=== PATIENT | female | born 1940 | race African-American/Black ===

== ENCOUNTER 2017-03-21 19:25 | Inpatient (IN) | payer MEDICARE, MEDICAID ==
[~2017-03-21] VITALS: Ht 165.1 cm; Wt 113.4 kg
[~2017-03-21 19:25] MED LIST: DIAZ5TAB PO; DIPH25CA83 PO; DOCU-138 PO; ESOM40CA PO; FERR325T23; [UNRECOGNIZED DRUG - OTHER]
[2017-03-21 23:40] LABS: BASOPHILS % 1.5 % (0.0-2.0); EOSINOPHILS % 8.1 % (0.0-5.0); HEMATOCRIT. 35.9 % (36.0-48.0); LYMPHOCYTES % 34.5 % (20.0-50.0); MEAN CORPUSCULAR VOLUME 90.2 fL (81.0-99.0); MEAN PLATELET VOLUME 7.2 fl (7.4-10.4); MONOCYTES % 6.7 % (2.0-8.0); NEUTROPHILS % 49.2 % (40.0-76.0); PLATELET 240 x1000/uL (130-400); RED BLOOD CELL COUNT 3.98 mill/uL (4.2-5.4); RED CELL DISTRIBUTION WIDTH 14.9 % (11.6-14.6)
[2017-03-22 00:04] LABS: CARBON DIOXIDE 26 mEq/L (21-32); CHLORIDE 109 mEq/L (98-107); TROPONIN I < 0.02 ng/mL (0.00-0.04)
[2017-03-22] MEDS ORDERED: KETOROLAC 60MG/2ML VIAL IM SCH (00:46)
[2017-03-22 05:20] VITALS: BP 153/90
[2017-03-22] MEDS ORDERED: POTASSIUM CHLORIDE 20MEQ TABLET SR PO NR (06:30)
[2017-03-22] MEDS ORDERED: TRAMADOL 50MG TABLET PO PRN (06:30)
[2017-03-22 08:00] VITALS: BP 155/88
[2017-03-22] MEDS: OMEPRAZOLE 20MG CAPSULE EXTENDED RELEASE PO SCH (08:24)
[2017-03-22] MEDS: DIPHENHYDRAMINE 25MG CAPSULE PO SCH (08:26)
[2017-03-22] MEDS: DOCUSATE SODIUM 100MG CAPSULE PO SCH ×2 (08:30→17:13)
[2017-03-22] MEDS ORDERED: MEDICATION NOT ON FORMULARY EA (Esomeprazole Mag Trihydrate (Nexium) 1 CAP) PO SCH (09:00)
[2017-03-22] MEDS ORDERED: DIAZEPAM 5 MG TABLET PO SCH (09:00)
[2017-03-22] MEDS ORDERED: LORA0.5T2 PO (09:53)
[2017-03-22] MEDS ORDERED: MAGNESIUM/ALUMINUM HYDROXIDE/SIMETHICONE 30ML UDC PO PRN (11:00)
[2017-03-22] MEDS ORDERED: CLONIDINE 0.1MG TABLET PO PRN (11:00)
[2017-03-22] MEDS ORDERED: ACETAMINOPHEN 325MG TABLET PO PRN (11:00)
[2017-03-22] MEDS ORDERED: DOCUSATE SODIUM 100MG CAPSULE PO PRN (11:00)
[2017-03-22] MEDS ORDERED: ONDANSETRON HCL 4MG/2ML VIAL IV PRN (11:00)
[2017-03-22] MEDS ORDERED: IPRATROPIUM/ALBUTEROL 0.5-3(2.5)MG/3ML NEB INH PRN (11:00)
[2017-03-22 12:00] VITALS: BP 145/75
[2017-03-22] MEDS ORDERED: LORAZEPAM 0.5MG TABLET PO PRN (12:00)
[2017-03-22 13:54] LABS: *AMPHETAMINES SCREEN URINE NEGATIVE (NEGATIVE); *BARBITURATES SCREEN URINE NEGATIVE (NEGATIVE); *BENZODIAZEPINES SCREEN URINE NEGATIVE (NEGATIVE); *COCAINE SCREEN URINE NEGATIVE (NEGATIVE); CANNABINOID URINE SCREEN NEGATIVE (NEGATIVE); METHADONE URINE SCREEN NEGATIVE (NEGATIVE); OPIATES URINE SCREEN NEGATIVE (NEGATIVE); PHENCYCLIDINE URINE SCREEN NEGATIVE (NEGATIVE)
[2017-03-22] MEDS: HYDROCODONE/ACETAMINOPHEN 5/325MG TABLET PO PRN ×2 (13:54→22:53)
[2017-03-22 16:00] VITALS: BP 157/74
[2017-03-22 20:00] VITALS: BP 136/82
[2017-03-22] MEDS: FUROSEMIDE 20MG TABLET PO SCH (21:48)
[2017-03-22] MEDS: ONDANSETRON HCL 4MG/2ML VIAL IV PRN (23:07)
[2017-03-23] VITALS: BP 111/55
[2017-03-23 04:00] VITALS: BP 135/80
[2017-03-23] MEDS: HYDROCODONE/ACETAMINOPHEN 5/325MG TABLET PO PRN ×3 (05:25→22:50)
[2017-03-23] MEDS: OMEPRAZOLE 20MG CAPSULE EXTENDED RELEASE PO SCH (05:25)
[2017-03-23 06:32] LABS: BASOPHILS % 0.6 % (0.0-2.0); EOSINOPHILS % 10.5 % (0.0-5.0); HEMATOCRIT. 36.5 % (36.0-48.0); HEMOGLOBIN. 12.2 g/dL (12.0-16.0); LYMPHOCYTES % 28.6 % (20.0-50.0); MEAN CORPUSCULAR HEMOGLOBIN 30.4 pg (28.0-32.0); MEAN CORPUSCULAR VOLUME 90.7 fL (81.0-99.0); MEAN PLATELET VOLUME 7.6 fl (7.4-10.4); MONOCYTES % 8.3 % (2.0-8.0); PLATELET 241 x1000/uL (130-400); RED BLOOD CELL COUNT 4.02 mill/uL (4.2-5.4); RED CELL DISTRIBUTION WIDTH 15.2 % (11.6-14.6)
[2017-03-23 07:54] LABS: CARBON DIOXIDE 26 mEq/L (21-32); CHLORIDE 107 mEq/L (98-107)
[2017-03-23 08:00] VITALS: BP 121/68
[2017-03-23] MEDS: FUROSEMIDE 20MG TABLET PO SCH ×2 (09:50→21:11)
[2017-03-23] MEDS: DIPHENHYDRAMINE 25MG CAPSULE PO SCH (09:50)
[2017-03-23] MEDS: DOCUSATE SODIUM 100MG CAPSULE PO SCH ×2 (09:50→16:06)
[2017-03-23] MEDS: ONDANSETRON HCL 4MG/2ML VIAL IV PRN (10:58)
[2017-03-23 12:00] VITALS: BP 131/72
[2017-03-23] MEDS ORDERED: IOHEXOL-300 100 ML BOTTLE ONE (15:11)
[2017-03-23 16:00] VITALS: BP 135/73
[2017-03-23 20:00] VITALS: BP 129/84
[2017-03-24] VITALS: BP 125/69
[2017-03-24 08:00] VITALS: BP 135/88
[2017-03-24] MEDS ORDERED: LACTULOSE 20G/30ML UDC PO NR (10:30)
[2017-03-24 12:00] VITALS: BP 116/71
[2017-03-24 13:00] LABS: BASOPHILS % 0.5 % (0.0-2.0); EOSINOPHILS % 8.6 % (0.0-5.0); HEMATOCRIT. 36.4 % (36.0-48.0); LYMPHOCYTES % 38.6 % (20.0-50.0); MEAN CORPUSCULAR HEMOGLOBIN 29.8 pg (28.0-32.0); MEAN CORPUSCULAR VOLUME 90.1 fL (81.0-99.0); MEAN PLATELET VOLUME 8.1 fl (7.4-10.4); NEUTROPHILS % 44.3 % (40.0-76.0); PLATELET 254 x1000/uL (130-400); RED BLOOD CELL COUNT 4.04 mill/uL (4.2-5.4); RED CELL DISTRIBUTION WIDTH 14.8 % (11.6-14.6)
[2017-03-24 13:27] LABS: CARBON DIOXIDE 29 mEq/L (21-32); CHLORIDE 103 mEq/L (98-107)
[2017-03-24] MEDS: HYDROCODONE/ACETAMINOPHEN 5/325MG TABLET PO PRN (13:45)
[2017-03-24 16:00] VITALS: BP 121/74
[2017-03-24] MEDS: DOCUSATE SODIUM 100MG CAPSULE PO SCH (16:41)
[2017-03-24 17:33] VITALS: BP 116/71
== END 2017-03-24 21:17 | disposition home health service (06) | DRG 948 ==
LOC: ER 19:25 → 6EST 03-22 01:19 → ENRESERV 03-22 03:32
PROVIDERS: ADMIT Family Medicine Adult Medicine; ATTEND Family Medicine Adult Medicine
DX: R60.0 Localized edema (principal); J84.9 Interstitial pulmonary disease, unspecified; G82.20 Paraplegia, unspecified; E44.1 Mild protein-calorie malnutrition; E66.01 Morbid (severe) obesity due to excess calories; I48.91 Unspecified atrial fibrillation; Z68.41 Body mass index [BMI] 40.0-44.9, adult; F41.9 Anxiety disorder, unspecified; J44.9 Chronic obstructive pulmonary disease, unspecified; R59.9 Enlarged lymph nodes, unspecified; N63.0 Unspecified lump in unspecified breast; I10 Essential (primary) hypertension; E87.6 Hypokalemia; Z74.01 Bed confinement status; Z80.3 Family history of malignant neoplasm of breast; Z85.118 Personal history of other malignant neoplasm of bronchus and lung; Z85.3 Personal history of malignant neoplasm of breast; Z87.891 Personal history of nicotine dependence; Z88.0 Allergy status to penicillin; Z90.2 Acquired absence of lung [part of]; Z90.710 Acquired absence of both cervix and uterus; Z92.21 Personal history of antineoplastic chemotherapy; Z92.3 Personal history of irradiation; Z98.84 Bariatric surgery status; Z90.49 Acquired absence of other specified parts of digestive tract; Z79.899 Other long term (current) drug therapy
CPT/HCPCS: 36415; 71010; 71260; 74177; 76700; 80048; 80053; 80305; 83690; 83735; 83880; 84484; 85025; 93005; 93306; 93970; 96372; 97110; 97116; 97162; 97165; 97530; 99285; J1885; J2405; Q0163; Q9967

== ENCOUNTER 2018-02-08 20:17 | Inpatient (IN) | payer MEDICARE, MEDICAID ==
[~2018-02-08] VITALS: Ht 165.1 cm; Wt 93.4 kg
[~2018-02-08 20:17] MED LIST changes: +CYAN10009 PO; -DIAZ5TAB PO; -DIPH25CA83 PO; -DOCU-138 PO; -ESOM40CA PO; -FERR325T23; +FURO20TA4 PO; +GABA-531 PO; +LORA0.5T2 PO; +OMEP40CA34 MT; -[UNRECOGNIZED DRUG - OTHER]
[2018-02-08] MEDS ORDERED: MORPHINE SULFATE 4 MG/ML CPJ (NOT FOR IM USE) IV STA (21:22)
[2018-02-08] MEDS ORDERED: SODIUM CHLORIDE 0.9% 1,000 ML IV ONE (21:22)
[2018-02-08] MEDS ORDERED: ONDANSETRON HCL 4MG/2ML INJ IV STA (21:22)
[2018-02-08 22:04] LABS: BASOPHILS % 0.7 % (0.0-2.0); EOSINOPHILS % 0.5 % (0.0-5.0); HEMATOCRIT. 33.3 % (36.0-48.0); HEMOGLOBIN. 11.3 g/dL (12.0-16.0); LYMPHOCYTES % 16.8 % (20.0-50.0); MEAN CORPUSCULAR VOLUME 91.6 fL (81.0-99.0); MEAN PLATELET VOLUME 7.7 fl (7.4-10.4); MONOCYTES % 9.5 % (2.0-8.0); NEUTROPHILS % 72.5 % (40.0-76.0); PLATELET 560 x1000/uL (130-400); RED BLOOD CELL COUNT 3.64 mill/uL (4.2-5.4); RED CELL DISTRIBUTION WIDTH 14.2 % (11.6-14.6)
[2018-02-08 22:10] LABS: CHLORIDE 98 mEq/L (98-107)
[2018-02-08] MEDS ORDERED: POTASSIUM CHLORIDE 20MEQ TABLET SR PO ONE (23:15)
[2018-02-09] MEDS ORDERED: SODIUM CHLORIDE 0.9% 1,000 ML IV ONE (02:00)
[2018-02-09] MEDS ORDERED: LORAZEPAM 2MG/ML CPJ IV ONE ×2 (02:00)
[2018-02-09 03:30] VITALS: BP 137/75
[2018-02-09] MEDS ORDERED: ACETAMINOPHEN 650MG/20.3ML UDC GT PRN (07:30)
[2018-02-09] MEDS ORDERED: AMPICILLIN 2,000 MG in SODIUM CHLORIDE 0.9% 100 ML IV SCH (07:30)
[2018-02-09] MEDS ORDERED: CLONIDINE 0.1MG TABLET PO PRN (07:30)
[2018-02-09] MEDS ORDERED: SODIUM CHLORIDE 0.9% 1,000 ML IV SCH (07:30)
[2018-02-09 08:00] VITALS: BP 118/60
[2018-02-09] MEDS ORDERED: MVI, ADULT NO.1 10 ML, FOLIC ACID 1 MG, THIAMINE HCL 100 MG in SODIUM CHLORIDE 0.9% 1,0... IV SCH ×4 (09:00)
[2018-02-09] MEDS: POTASSIUM CHLORIDE 20MEQ TABLET SR PO SCH ×2 (09:50→21:13)
[2018-02-09] MEDS: CEFTRIAXONE 1 G PREMIX 50 ML IV SCH (09:50)
[2018-02-09] MEDS: ENOXAPARIN 40MG/0.4ML SYR SUBCUT SCH (09:51)
[2018-02-09 12:00] VITALS: BP 123/77
[2018-02-09 16:00] VITALS: BP 138/88
[2018-02-09 17:54] LABS: CHLORIDE 101 mEq/L (98-107)
[2018-02-09 18:01] LABS: BASOPHILS % 0.7 % (0.0-2.0); EOSINOPHILS % 0.1 % (0.0-5.0); HEMATOCRIT. 30.6 % (36.0-48.0); LYMPHOCYTES % 10.8 % (20.0-50.0); MEAN CORPUSCULAR HEMOGLOBIN 30.6 pg (28.0-32.0); MEAN CORPUSCULAR VOLUME 93.4 fL (81.0-99.0); MEAN PLATELET VOLUME 6.9 fl (7.4-10.4); NEUTROPHILS % 79.4 % (40.0-76.0); PLATELET 445 x1000/uL (130-400); RED BLOOD CELL COUNT 3.27 mill/uL (4.2-5.4); RED CELL DISTRIBUTION WIDTH 13.4 % (11.6-14.6)
[2018-02-09 20:00] VITALS: BP 133/66
[2018-02-09] MEDS: HYDROMORPHONE HCL/PF 2MG/ML CPJ IV PRN ×2 (21:13→23:33)
[2018-02-10] VITALS: BP 130/79
[2018-02-10] MEDS ORDERED: MAGNESIUM SULFATE 2 GM in DEXTROSE 5% WATER 50 ML IV NR (01:00)
[2018-02-10] MEDS: MORPHINE SULFATE 4 MG/ML CPJ (NOT FOR IM USE) IV PRN ×2 (01:26→12:54)
[2018-02-10 04:00] VITALS: BP 141/83
[2018-02-10] MEDS: HYDROMORPHONE HCL/PF 2MG/ML CPJ IV PRN (05:04)
[2018-02-10 07:33] LABS: BASOPHILS % 0.9 % (0.0-2.0); EOSINOPHILS % 0.4 % (0.0-5.0); HEMATOCRIT. 29.6 % (36.0-48.0); HEMOGLOBIN. 9.8 g/dL (12.0-16.0); LYMPHOCYTES % 10.1 % (20.0-50.0); MEAN CORPUSCULAR HEMOGLOBIN 30.9 pg (28.0-32.0); MEAN CORPUSCULAR VOLUME 93.7 fL (81.0-99.0); MEAN PLATELET VOLUME 6.8 fl (7.4-10.4); MONOCYTES % 8.4 % (2.0-8.0); NEUTROPHILS % 80.2 % (40.0-76.0); PLATELET 483 x1000/uL (130-400); RED BLOOD CELL COUNT 3.16 mill/uL (4.2-5.4); RED CELL DISTRIBUTION WIDTH 13.4 % (11.6-14.6)
[2018-02-10 07:53] LABS: CHLORIDE 103 mEq/L (98-107)
[2018-02-10 08:00] VITALS: BP 113/59
[2018-02-10] MEDS: POTASSIUM CHLORIDE 20MEQ TABLET SR PO SCH ×4 (09:00→16:22)
[2018-02-10] MEDS: CEFTRIAXONE 1 G PREMIX 50 ML IV SCH (09:51)
[2018-02-10] MEDS: ENOXAPARIN 40MG/0.4ML SYR SUBCUT SCH (09:51)
[2018-02-10 12:00] VITALS: BP 127/67
[2018-02-10] MEDS: LORAZEPAM 2MG/ML CPJ IV PRN (15:49)
[2018-02-10 16:00] VITALS: BP 118/61
[2018-02-10 20:00] VITALS: BP 147/76
[2018-02-10] MEDS: OXYCODONE HCL/ACETAMINOPHEN 5/325MG TABLET PO PRN (20:34)
[2018-02-11] VITALS: BP 130/61
[2018-02-11] MEDS: OXYCODONE HCL/ACETAMINOPHEN 5/325MG TABLET PO PRN ×5 (00:54→22:57)
[2018-02-11] MEDS: LORAZEPAM 2MG/ML CPJ IV PRN ×2 (03:23→08:55)
[2018-02-11 04:00] VITALS: BP 122/70
[2018-02-11 07:55] LABS: CHLORIDE 102 mEq/L (98-107)
[2018-02-11 08:00] VITALS: BP 115/61
[2018-02-11 08:12] LABS: PHOSPHORUS 1.9 mg/dL (2.5-4.9)
[2018-02-11] MEDS: POTASSIUM CHLORIDE 20MEQ TABLET SR PO SCH ×2 (08:56→17:17)
[2018-02-11] MEDS: ENOXAPARIN 40MG/0.4ML SYR SUBCUT SCH (08:58)
[2018-02-11] MEDS: CEFTRIAXONE 1 G PREMIX 50 ML IV SCH (08:58)
[2018-02-11] MEDS: POTASSIUM-SODIUM PHOSPHATE POWDER PACKET PO SCH ×2 (08:59→17:17)
[2018-02-11 11:08] LABS: BASOPHILS % 1.3 % (0.0-2.0); EOSINOPHILS % 0.7 % (0.0-5.0); HEMATOCRIT. 29.5 % (36.0-48.0); HEMOGLOBIN. 9.8 g/dL (12.0-16.0); LYMPHOCYTES % 17.7 % (20.0-50.0); MEAN CORPUSCULAR HEMOGLOBIN 30.8 pg (28.0-32.0); MEAN CORPUSCULAR VOLUME 92.5 fL (81.0-99.0); MEAN PLATELET VOLUME 6.8 fl (7.4-10.4); MONOCYTES % 9.9 % (2.0-8.0); NEUTROPHILS % 70.4 % (40.0-76.0); PLATELET 490 x1000/uL (130-400); RED BLOOD CELL COUNT 3.19 mill/uL (4.2-5.4); RED CELL DISTRIBUTION WIDTH 13.8 % (11.6-14.6)
[2018-02-11 12:00] VITALS: BP 118/63
[2018-02-11] MEDS: MORPHINE SULFATE 4 MG/ML CPJ (NOT FOR IM USE) IV PRN (13:03)
[2018-02-11 16:00] VITALS: BP 128/69
[2018-02-11] MEDS: APIXABAN 5 MG TABLET PO SCH (17:17)
[2018-02-11] MEDS ORDERED: POTASSIUM PHOS,M-BASIC-D-BASIC 30 MMOL in DEXT 5% WATER 500 ML IV NR (18:00)
[2018-02-11 19:26] LABS: CLARITY URINE CLOUDY (CLEAR); COLOR URINE DARK YELLOW (YELLOW); KETONES URINE 1+ (NEGATIVE); LEUKOCYTE ESTERASE URINE 2+ (NEGATIVE); NITRITE URINE NEGATIVE (NEGATIVE); OCCULT BLOOD URINE 2+ (NEGATIVE); PH URINE 5.5 (4.5-8.0); PROTEIN URINE TRACE (NEGATIVE)
[2018-02-11 20:00] VITALS: BP 138/58
[2018-02-12] MEDS: LORAZEPAM 2MG/ML CPJ IV PRN ×2 (00:21→12:13)
[2018-02-12 03:46] VITALS: BP 131/78
[2018-02-12] MEDS: MORPHINE SULFATE 4 MG/ML CPJ (NOT FOR IM USE) IV PRN ×4 (04:30→23:22)
[2018-02-12 08:00] VITALS: BP 130/75
[2018-02-12] MEDS ORDERED: ENOXAPARIN 30MG/0.3ML SYR SUBCUT SCH (09:00)
[2018-02-12] MEDS: MAGNESIUM OXIDE 400MG TABLET PO SCH (09:13)
[2018-02-12] MEDS: APIXABAN 5 MG TABLET PO SCH ×2 (09:13→17:39)
[2018-02-12] MEDS: POTASSIUM CHLORIDE 20MEQ TABLET SR PO SCH ×2 (09:13→17:39)
[2018-02-12] MEDS: CEFTRIAXONE 1 G PREMIX 50 ML IV SCH (09:13)
[2018-02-12] MEDS: POTASSIUM-SODIUM PHOSPHATE POWDER PACKET PO SCH ×2 (09:13→17:39)
[2018-02-12 12:00] VITALS: BP 113/67
[2018-02-12 16:00] VITALS: BP 147/86
[2018-02-12] MEDS ORDERED: POTASSIUM-SODIUM PHOSPHATE POWDER PACKET PO SCH (17:00)
[2018-02-12 20:00] VITALS: BP 125/87
[2018-02-12 20:32] LABS: VITAMIN B12 SERUM 564 pg/mL (211-911)
[2018-02-13] VITALS: BP 153/84
[2018-02-13 04:00] VITALS: BP 150/82
[2018-02-13 07:17] LABS: CHLORIDE 101 mEq/L (98-107)
[2018-02-13 07:35] LABS: BASOPHILS % 0.8 % (0.0-2.0); CREATINE KINASE 26 IU/L (26-192); EOSINOPHILS % 1.6 % (0.0-5.0); HEMOGLOBIN. 10.9 g/dL (12.0-16.0); LYMPHOCYTES % 22.1 % (20.0-50.0); MEAN CORPUSCULAR HEMOGLOBIN 30.6 pg (28.0-32.0); MEAN CORPUSCULAR VOLUME 92.5 fL (81.0-99.0); MEAN PLATELET VOLUME 6.6 fl (7.4-10.4); MONOCYTES % 8.1 % (2.0-8.0); NEUTROPHILS % 67.4 % (40.0-76.0); PLATELET 561 x1000/uL (130-400); RED BLOOD CELL COUNT 3.56 mill/uL (4.2-5.4); RED CELL DISTRIBUTION WIDTH 13.4 % (11.6-14.6)
[2018-02-13 08:00] VITALS: BP 141/88
[2018-02-13] MEDS: POTASSIUM-SODIUM PHOSPHATE POWDER PACKET PO SCH (09:00)
[2018-02-13] MEDS ORDERED: PREGABALIN 25MG CAPSULE PO SCH (09:00)
[2018-02-13] MEDS: CEFTRIAXONE 1 G PREMIX 50 ML IV SCH (09:38)
[2018-02-13] MEDS: MAGNESIUM OXIDE 400MG TABLET PO SCH (09:38)
[2018-02-13] MEDS: POTASSIUM CHLORIDE 20MEQ TABLET SR PO SCH ×2 (09:38→16:42)
[2018-02-13] MEDS: DICLOFENAC SODIUM 75MG DR (EC) TABLET PO SCH ×2 (09:39→20:18)
[2018-02-13] MEDS: APIXABAN 5 MG TABLET PO SCH ×2 (09:39→16:42)
[2018-02-13] MEDS: HYDROXYCHLOROQUINE SULFATE 200MG TABLET PO SCH ×2 (09:47→16:42)
[2018-02-13 12:00] VITALS: BP 139/85
[2018-02-13] MEDS: MORPHINE SULFATE 4 MG/ML CPJ (NOT FOR IM USE) IV PRN (13:04)
[2018-02-13 13:45] LABS: RHEUMATOID FACTOR SCREEN POSITIVE (NEGATIVE)
[2018-02-13 16:00] VITALS: BP 116/65
[2018-02-13 20:00] VITALS: BP 142/76
[2018-02-13] MEDS: PREGABALIN 50 MG CAPSULE PO SCH (21:03)
[2018-02-14] VITALS: BP 114/60
[2018-02-14] MEDS: MORPHINE SULFATE 4 MG/ML CPJ (NOT FOR IM USE) IV PRN ×3 (03:42→13:28)
[2018-02-14 08:00] VITALS: BP 137/77
[2018-02-14] MEDS: POTASSIUM CHLORIDE 20MEQ TABLET SR PO SCH (08:49)
[2018-02-14] MEDS: POTASSIUM-SODIUM PHOSPHATE POWDER PACKET PO SCH ×2 (08:49→08:52)
[2018-02-14] MEDS: APIXABAN 5 MG TABLET PO SCH (08:49)
[2018-02-14] MEDS: DICLOFENAC SODIUM 75MG DR (EC) TABLET PO SCH (08:50)
[2018-02-14] MEDS: CEFTRIAXONE 1 G PREMIX 50 ML IV SCH (08:50)
[2018-02-14] MEDS: HYDROXYCHLOROQUINE SULFATE 200MG TABLET PO SCH (08:50)
[2018-02-14] MEDS: MAGNESIUM OXIDE 400MG TABLET PO SCH (08:50)
[2018-02-14] MEDS: PREGABALIN 50 MG CAPSULE PO SCH (09:10)
[2018-02-14 12:00] VITALS: BP 130/74
[2018-02-14 16:00] VITALS: BP 127/69
[2018-02-14 18:24] VITALS: BP 127/69
[2018-02-15 09:06] LABS: ALDOLASE 3.3 U/L (3.3-10.3)
[2018-02-15 13:06] LABS: COMPLEMENT C3 132 mg/dL (82-167)
[2018-02-15 15:08] LABS: ANA IFA Negative (.)
[2018-02-16 04:17] LABS: CYC CITRULLINATED PEP IgG/IgA 17 units (0-19)
== END 2018-02-14 19:10 | disposition home or self-care (01) | DRG 871 ==
LOC: ER 20:17 → 7WST 02-09 00:04 → ENRESERV 02-09 02:13 → CANRESERV 02-09 02:13 → ENRESERV 02-09 02:42
PROVIDERS: ADMIT Internal Medicine Nephrology; ATTEND Internal Medicine Nephrology
DX: A41.9 Sepsis, unspecified organism (principal); G82.50 Quadriplegia, unspecified; E43 Unspecified severe protein-calorie malnutrition; G93.41 Metabolic encephalopathy; L97.409 Non-pressure chronic ulcer of unspecified heel and midfoot with unspecified severity; I82.432 Acute embolism and thrombosis of left popliteal vein; N39.0 Urinary tract infection, site not specified; L03.115 Cellulitis of right lower limb; L03.116 Cellulitis of left lower limb; E87.6 Hypokalemia; G89.4 Chronic pain syndrome; E66.01 Morbid (severe) obesity due to excess calories; D64.9 Anemia, unspecified; E11.621 Type 2 diabetes mellitus with foot ulcer; X58.XXXA Exposure to other specified factors, initial encounter; E78.00 Pure hypercholesterolemia, unspecified; I11.0 Hypertensive heart disease with heart failure; L98.499 Non-pressure chronic ulcer of skin of other sites with unspecified severity; I45.10 Unspecified right bundle-branch block; I50.9 Heart failure, unspecified; M13.0 Polyarthritis, unspecified; S90.821A Blister (nonthermal), right foot, initial encounter; M50.30 Other cervical disc degeneration, unspecified cervical region; M48.02 Spinal stenosis, cervical region; M48.061 Spinal stenosis, lumbar region without neurogenic claudication; M51.36 Other intervertebral disc degeneration, lumbar region; M51.37 Other intervertebral disc degeneration, lumbosacral region; Z53.20 Procedure and treatment not carried out because of patient's decision for unspecified reasons; Z59.0 Homelessness; Z74.01 Bed confinement status; Z79.01 Long term (current) use of anticoagulants; Z85.118 Personal history of other malignant neoplasm of bronchus and lung; Z85.3 Personal history of malignant neoplasm of breast; Z86.718 Personal history of other venous thrombosis and embolism; Z86.73 Personal history of transient ischemic attack (TIA), and cerebral infarction without residual deficits; Z88.0 Allergy status to penicillin; Z68.34 Body mass index [BMI] 34.0-34.9, adult; Z91.19 Patient's noncompliance with other medical treatment and regimen; Y93.89 Activity, other specified; Y92.89 Other specified places as the place of occurrence of the external cause; Y99.8 Other external cause status; Z79.899 Other long term (current) drug therapy
CPT/HCPCS: 36415; 70450; 70551; 71045; 72141; 72146; 72148; 80048; 80053; 81003; 82085; 82550; 82607; 83605; 83735; 84100; 84134; 84443; 84550; 85025; 85651; 86140; 86160; 86200; 86256; 86430; 86431; 87040; 87086; 93005; 93970; 96361; 96374; 96375; 96376; 97110; 97163; 97535; 99285; C1893; J0696; J1170; J1650; J2060; J2270; J2405; J3411; J3475; J3490; J7030; J7050; J7060